=== PATIENT | female | born 1945 | race Caucasian/White ===

== ENCOUNTER → 2018-09-12 14:26 | Outpatient (CLI) | payer OTHER, SELFPAY ==
--- NOTE | 2018-09-12 | DI.MRI.S_ITS ---
PROCEDURE: MR LUMBAR SPINE WO CON INDICATIONS: Low back pain TECHNIQUE: Noncontrast sagittal T1 spin echo and T2 fast echo, sagittal STIR, axial T1 and T2 fast spin echo through the lumbar spine. In cases with scoliosis, additional coronal T2 fast spin echo may be performed. COMPARISON: [facility], MR, L-SPINE WITHOUT CONTRAST, 10/02/2011, 12:58. FINDINGS: Image quality: Susceptibility artifact from transpedicular fusion hardware at L3-L5 levels are seen. Alignment and Curvature: There is straightening of normal lumbar lordosis. Grade 1 anterolisthesis of L3 on L4 is again noted. Minimal anterolisthesis of L4 on L5 is seen. Bone Marrow: There is no gross marrow edema. Patient is status post transpedicular fusion at L3-L5 level. No acute compression fracture. Vertebral body heights are well-preserved. Spinal Cord: Conus medullaris terminates at the L1 level. Visualized cord demonstrates normal signal and size. Paraspinous Soft Tissues: No paravertebral masses. L1-L2: Diffuse disc bulge and bilateral facet arthrosis is seen with mild central canal stenosis and mild bilateral neuroforaminal narrowing. L2-L3: Decreased intervertebral disc space and degenerative endplate changes are noted. Broad-based disc bulge is seen with bilateral facet arthrosis and hypertrophy of ligamentum flavum causing moderate to severe central canal stenosis and bilateral neuroforaminal narrowing. There is compression of bilateral exiting L2 nerve roots. L3-L4: Bilateral facet arthrosis is seen. Mild to moderate bilateral neuroforaminal narrowing is noted. No significant central canal stenosis. Broad-based disc bulge is seen with suggestion of mild compression of bilateral exiting L3 nerve roots. L4-L5: There is prior laminectomy. Broad based disc bulge and bilateral facet arthrosis is seen. Mild central canal stenosis is seen. moderate to severe bilateral neuroforaminal narrowing is seen with compression of bilateral L4 and L5 nerve roots. L5-S1: Diffuse disc bulge and bilateral facet arthrosis is seen. Mild central canal stenosis and mild bilateral neuroforaminal narrowing is seen. IMPRESSION: 1. Patient is status post interval laminectomy and transpedicular fusion at L3-L5 levels with improved lumbar spine alignment. Grade 1 anterolisthesis of L3 on L4. Minimal anterolisthesis of L4 and L5 is seen. No acute compression fracture. 2. Degenerative disc bulge and bilateral facet arthrosis throughout lumbar spine causing [id number] central canal stenosis and bilateral neuroforaminal narrowing as described above. Dictated by: Dank Michelle M.D. on 09/12/2018 at 17:07 Approved by: Dank Michelle M.D. on 09/12/2018 at 17:17
== END ==
PROVIDERS: PCP Family Medicine; Visit Provider Family Medicine
DX: M54.5 Low back pain (principal); M85.851 Other specified disorders of bone density and structure, right thigh; Z78.0 Asymptomatic menopausal state; M06.9 Rheumatoid arthritis, unspecified; M47.816 Spondylosis without myelopathy or radiculopathy, lumbar region; M47.817 Spondylosis without myelopathy or radiculopathy, lumbosacral region; M51.36 Other intervertebral disc degeneration, lumbar region; M51.37 Other intervertebral disc degeneration, lumbosacral region; M48.061 Spinal stenosis, lumbar region without neurogenic claudication; M48.07 Spinal stenosis, lumbosacral region; M43.16 Spondylolisthesis, lumbar region; Z98.1 Arthrodesis status
CPT/HCPCS: 72148; 77080

== ENCOUNTER 2023-05-06 11:44 | Emergency (ER) | payer MEDICARE, OTHER, SELFPAY ==
[2023-05-06 12:03] VITALS: TEMP 36.2; BMI 22.8
[2023-05-06 13:28] VITALS: BP 107/56; PULSE 57; RESP 18; O2SAT 99
--- NOTE | 2023-05-06 13:29 | ED_ITS ---
HPI - Wound/Laceration <Maryana Espitia PA-C - Last Filed: 05/06/23 13:35> General Chief Complaint: Wound/Laceration Stated Complaint: finger laceration Time Seen by Provider: 05/06/23 12:13 Source: patient Mode of arrival: Ambulatory History of Present Illness HPI narrative: 78-year-old female presents to the ED status post a finger laceration sustained just prior to arrival. Patient accidentally cut her thumb with a kitchen knife when slicing a squash. Patient is not on blood thinners. Bleeding is controlled with pressure. Patient denies numbness, tingling, weakness. There is full range of motion. Tetanus is up-to-date. Related Data Previous Rx's Medication Instructions Recorded estradiol 10 mcg vaginal tablet 10 mcg VG SEE INSTRUCTIONS #24 tabs 05/15/16 (Vagifem) Allergies Allergy/AdvReac Type Severity Reaction Status Date / Time venom-honey bee Allergy Severe WASPS NOT Unverified 06/26/17 11:52 [BEE VENOM (HONEY BEE)] HONEY BEES, ANAPHYLAXIS oxycodone Allergy Verified 05/06/23 12:03 Review of Systems <Maryana Espitia PA-C - Last Filed: 05/06/23 13:35> Constitutional Constitutional: Denies chills, Denies fatigue, Denies fever(s), Denies frequent falls, Denies lethargy and Denies weakness Eyes Eyes: Denies change in vision, Denies eye discharge, Denies irritation and Denies loss of vision ENT Ears, Nose, Mouth, and Throat: Denies change in voice, Denies dizziness, Denies neck pain, Denies sore throat and Denies throat swelling Cardiovascular Cardiovascular: Denies chest pain, Denies irregular heart rhythm, Denies lightheadedness, Denies palpitations, Denies dyspnea, Denies dyspnea on exertion and Denies orthopnea Respiratory Respiratory: Denies cough, Denies dyspnea, Denies dyspnea on exertion and Denies wheezing Gastrointestinal Gastrointestinal: Denies abdominal pain, Denies change in bowel habits, Denies diarrhea, Denies nausea and Denies vomiting Musculoskeletal Musculoskeletal: Denies neck pain and Denies numbness Integumentary/Breasts Skin/Breast: Denies pruritus, Denies erythema, Denies rash and Reports wounds Comments: Right thumb laceration Neurologic Neurologic: Denies behavioral changes, Denies confusion, Denies dizziness, Denies frequent falls, Denies loss of vision, Denies numbness and Denies weakness Psychiatric Psychiatric: Denies anxiety, Denies behavioral changes, Denies confusion, Denies depression, Denies homicidal ideation and Denies suicidal ideation Endocrine Endocrine: Denies fatigue, Denies flushing and Denies palpitations Hematologic/Lymphatic Hematologic/Lymphatic: Denies easy bruising Allergic/Immunologic Allergic/Immunologic: Denies urticaria, Denies throat swelling and Denies wheezing Patient History <Maryana Espitia PA-C - Last Filed: 05/06/23 13:35> Surgical History Status post laminectomy Status post rotator cuff repair Family History Mother Age: 98 High cholesterol Arrhythmia Social History Smoking Status: Never smoker Smoking Status: Never smoker alcohol intake frequency: 0-2 drinks per day Alcohol type: wine Substance Use Type: does not use Exam <Maryana Espitia PA-C - Last Filed: 05/06/23 13:35> Narrative Exam Narrative: Const General:?cooperative, healthy appearing and comfortable [facility] Head:?normal to inspection Ears:?hearing grossly normal bilaterally Nose:?external nose normal Face and sinus:?normal facial exam and sinuses nontender Mouth:?oral mucosae normal Throat:?posterior oropharynx normal Eyes General:?appearance normal, both eyes and all related structures Neck Neck:?normal visual inspection and no lymphadenopathy noted Resp Effort & Inspection:?normal respiratory effort Auscultation:?clear to auscultation bilaterally Cardio Rate:?regular rate Rhythm:?regular rhythm Integumentary There is a 2 cm linear laceration to the volar aspect of the right thumb. No underlying structures visualized on exam. Strength and sensation is intact. Full range of motion. Patient is neurovascularly intact. Bleeding is controlled with pressure. Neuro General:?patient alert, patient awake and patient oriented x3 Initial Vital Signs Initial Vital Signs: Vital Signs Temperature 97.2 F L 05/06/23 12:03 <Esperanza Madera DO - Last Filed: 05/07/23 07:25> Initial Vital Signs Initial Vital Signs: Vital Signs Temperature 97.2 F L 02/19/24 12:03 Procedures <Maryana Espitia PA-C - Last Filed: 05/06/23 13:35> Laceration Repair Laceration 1: Site: hand Side (If applicable): right Size (cm): 2 Description: linear Depth: simple, single layer Local Anesthetic: lidocaine 1% Amount of anesthesia used (mL): 1 Pre-repair: wound explored, irrigated extensively and deep structures intact Skin layer closed with: nylon Skin layer suture size: 5-0 Number of sutures: 5 Technique: simple, interrupted Course <Maryana Espitia PA-C - Last Filed: 05/06/23 13:35> Vital Signs Vital signs: Vital Signs - 8 hr 05/06/23 12:03 05/06/23 13:28 Temperature 97.2 F L Pulse Rate 57 L Respiratory Rate 18 Blood Pressure 107/56 L Pulse Oximetry 99 Oxygen Delivery Method Room Air <Esperanza Madera DO - Last Filed: 05/07/23 07:25> Vital Signs Vital signs: Vital Signs - 8 hr 05/06/23 12:03 05/06/23 13:28 Temperature 97.2 F L Pulse Rate 57 L Respiratory Rate 18 Blood Pressure 107/56 L Pulse Oximetry 99 Oxygen Delivery Method Room Air MDM - Wound/Laceration <ROGELIO Simmons Last Filed: 05/06/23 13:35> MDM Narrative Medical decision making narrative: 78-year-old female presents to the ED status post a finger laceration sustained just prior to arrival. Linear superficial laceration, no underlying structures visualized on exam. No indication for imaging. Laceration was repaired with 5 sutures. Sutures will need to be removed in 7-10 days. Wound care and suture removal information discussed with patient. ED return precautions discussed with patient. Patient verbalized understanding. Medical records reviewed: Yes Discharge Plan Departure Patient Disposition: Home Clinical Impression: Laceration Instructions: DI for Laceration Repair Activity Restrictions/Additional Instructions: You were evaluated in the ED today for a finger injury. Your laceration was repaired with 5 sutures. The sutures will need to be removed in 7-10 days. You may go to a walk-in clinic your primary care doctor or return to the ED for suture removal. Please keep the wound clean and dry for the 1st 24 hours, after which you may wash gently with soap and water. Please do not keep any wet dressings on the wound for any length of time. Please watch for signs of infection including worsening redness, pain, swelling, warmth, discharge. Return to the ED or see your PCP if you note any signs of infection. Prescriptions: No Action estradiol [Vagifem] 10 MCG tablet 10 mcg VG SEE INSTRUCTIONS Qty: 24 0RF Referrals: Miscellaneous,Doctor, MD [Primary Care Provider] - Stand Alone Forms: Patient Portal/API ED Sign-out <Esperanza Madera DO - Last Filed: 05/07/23 07:25> Cosign ED Attending Coshanyature Attestation: I was immediately available in the department for consultation.
== END 2023-05-06 13:44 | disposition home or self-care (01) ==
PROVIDERS: Emergency Provider Student in an Organized Health Care Education/Training Program
DX: S61.011A Laceration without foreign body of right thumb without damage to nail, initial encounter (principal); W26.0XXA Contact with knife, initial encounter; Y93.G3 Activity, cooking and baking
CPT/HCPCS: 99283